=== PATIENT | female | born 1980 | race Caucasian/White ===

== ENCOUNTER 2022-06-08 22:47 | Emergency (ER) | payer BC ==
[2022-06-08] MEDS ORDERED: Ketorolac Tromethamine 60 MG/2 ML VIAL ONE (23:18)
[2022-06-09] MEDS ORDERED: Cyclobenzaprine 10 MG TAB ONE (00:18)
== END 2022-06-09 00:30 | disposition home or self-care (01) ==
LOC: NAV ER/OP 22:47
DX: S30.0XXA Contusion of lower back and pelvis, initial encounter (principal); E11.9 Type 2 diabetes mellitus without complications; I10 Essential (primary) hypertension; Z79.899 Other long term (current) drug therapy; W17.89XA Other fall from one level to another, initial encounter
CPT/HCPCS: 72131; 96372; J1885